=== PATIENT | male | born 1955 | race Caucasian/White ===

== ENCOUNTER 2022-12-07 15:09 | Emergency (ER) | payer OTHER, MEDICARE ==
[~2022-12-07] VITALS: Ht 198.1 cm; Wt 196.9 kg
[~2022-12-07 15:09] MED LIST: BENAZEPRIL HCL10 MG PO; C-500500 MG PO; CO Q-10 100 MG1 EACH PO; CYCLOBENZAPRINE10 MG PO; CYMBALTA30 MG PO; D3-5050000 UNIT PO; HYDROCODON-ACE1 EAC5 PO; LEVOTHYROXINE125 MCG PO; LOVASTATIN40 MG PO; MELOXICAM15 MG PO; METFORMIN HCL1000 MG PO; VICTOZA 2-0.6 MG/0.1; rose hips PO
[2022-12-07 18:10] VITALS: O2SAT 97
== END 2022-12-07 20:03 | disposition home or self-care (01) ==
LOC: ER 15:11
DX: M54.50 Low back pain, unspecified (principal); W01.0XXA Fall on same level from slipping, tripping and stumbling without subsequent striking against object, initial encounter; Y93.01 Activity, walking, marching and hiking; Y92.89 Other specified places as the place of occurrence of the external cause
CPT/HCPCS: 72100; 73522; 99284